=== PATIENT | female | born 1975 | race Caucasian/White ===

== ENCOUNTER → 2017-11-01 | Outpatient (REF) | payer OTHER ==
[2017-11-01 11:13] LABS: HEMATOCRIT 39.9 % (36.0-47.0); MEAN CORPUSCULAR HEMOGLOBIN 27.8 pg (27.0-33.0); MEAN CORPUSCULAR HGB CONC 32.6 g/dl (32.0-36.5); MEAN CORPUSCULAR VOLUME 85.3 fl (80.0-96.0); PLATELET COUNT, AUTOMATED 263 10^3/uL (150-450); RED BLOOD COUNT 4.68 10^6/uL (4.00-5.40); RED CELL DISTRIBUTION WIDTH 12.9 % (11.5-14.5); WHITE BLOOD COUNT 7.3 10^3/uL (4.0-10.0)
[2017-11-01 11:35] LABS: ALBUMIN 3.9 GM/DL (3.2-5.2); ALBUMIN/GLOBULIN RATIO 1.26 (1.00-1.93); ALKALINE PHOSPHATASE 98 U/L (45-117); ALT/SGPT 32 U/L (12-78); ANION GAP 8 MEQ/L (8-16); AST/SGOT 19 U/L (7-37); BILIRUBIN,TOTAL 0.5 MG/DL (0.2-1.0); BLOOD UREA NITROGEN 16 MG/DL (7-18); CALCIUM LEVEL 8.8 MG/DL (8.5-10.1); CARBON DIOXIDE LEVEL 26 MEQ/L (21-32); CHLORIDE LEVEL 108 MEQ/L (98-107); CHOLESTEROL LEVEL 149 MG/DL (<200); CREATININE FOR GFR 0.72 MG/DL (0.55-1.30); GLOMERULAR FILTRATION RATE > 60.0 (>58); GLUCOSE, FASTING 94 MG/DL (70-100); HDL CHOLESTEROL 39 MG/DL (>40); LDL CHOLESTEROL 90.6 MG/DL (<100); NON-HDL-C 110 MG/DL; SODIUM LEVEL 142 MEQ/L (136-145); TRIGLYCERIDES LEVEL 97 MG/DL (<150)
== END ==
LOC: M LABDRAW1 10:53
DX: E66.9 Obesity, unspecified (principal); R00.2 Palpitations; I10 Essential (primary) hypertension
CPT/HCPCS: 84443

== ENCOUNTER → 2018-05-10 | Outpatient (REF) | payer OTHER | LOC: M LAB REF 12:47 | DX: R19.7 Diarrhea, unspecified (principal) ==

== ENCOUNTER → 2018-05-10 | Outpatient (CLI) | payer OTHER ==
[2018-05-10 12:56] LABS: BASO % 0.4 % (0.0-1.0); EOS # 0.5 10^3/uL (0.0-0.50); EOS % 5.9 % (0.0-3.0); HEMATOCRIT 45.5 % (36.0-47.0); IMMATURE GRANULOCYTE % 0.4 % (0-3.0); LYMPH # 2.2 10^3/uL (1.5-4.5); LYMPH % 25.7 % (24.0-44.0); MEAN CORPUSCULAR HEMOGLOBIN 28.1 pg (27.0-33.0); MEAN CORPUSCULAR VOLUME 85.2 fl (80.0-96.0); MONO # 0.8 10^3/uL (0.0-0.8); NEUTROPHILS # 4.9 10^3/uL (1.8-7.7); NEUTROPHILS % 58.6 % (36.0-66.0); PLATELET COUNT, AUTOMATED 256 10^3/uL (150-450); RED BLOOD COUNT 5.34 10^6/uL (4.00-5.40); RED CELL DISTRIBUTION WIDTH 12.9 % (11.5-14.5); WHITE BLOOD COUNT 8.4 10^3/uL (4.0-10.0)
[2018-05-10 14:31] LABS: ALBUMIN 3.8 GM/DL (3.2-5.2); ALBUMIN/GLOBULIN RATIO 1.15 (1.00-1.93); ALKALINE PHOSPHATASE 110 U/L (45-117); ALT/SGPT 51 U/L (12-78); ANION GAP 7 MEQ/L (8-16); AST/SGOT 32 U/L (7-37); BILIRUBIN,TOTAL 0.4 MG/DL (0.2-1.0); BLOOD UREA NITROGEN 12 MG/DL (7-18); CALCIUM LEVEL 9.2 MG/DL (8.5-10.1); CARBON DIOXIDE LEVEL 24 MEQ/L (21-32); CHLORIDE LEVEL 108 MEQ/L (98-107); CREATININE FOR GFR 0.86 MG/DL (0.55-1.30); FREE T4 1.28 NG/DL (0.76-1.46); GLOMERULAR FILTRATION RATE > 60.0 (>58); GLUCOSE, FASTING 106 MG/DL (70-100); POTASSIUM SERUM 4.2 MEQ/L (3.5-5.1); SODIUM LEVEL 139 MEQ/L (136-145); TOTAL PROTEIN 7.1 GM/DL (6.4-8.2)
== END ==
LOC: M WUC 09:19
DX: R19.7 Diarrhea, unspecified (principal)
CPT/HCPCS: 84443

== ENCOUNTER 2021-03-24 07:31 | Emergency (ER) | payer OTHER ==
[~2021-03-24] VITALS: Ht 170.2 cm; Wt 117.6 kg
[2021-03-24] MEDS ORDERED: LISI-898 PO (07:41)
[2021-03-24] MEDS ORDERED: ACET325C5 PO (07:41)
[2021-03-24] MEDS ORDERED: OMEP20TA2 PO (07:41)
[2021-03-24] MEDS ORDERED: IBUP-1022 PO (07:41)
[2021-03-24] MEDS ORDERED: KETOROLAC TROMETHAMINE 10 MG TAB PO ONE (08:25)
[2021-03-24] MEDS ORDERED: METOCLOPRAMIDE 10 MG TAB PO ONE (08:25)
[2021-03-24] MEDS ORDERED: KETOROLAC 30 MG/ML 1ML VIAL IV ONE (08:25)
[2021-03-24 08:40] LABS: BASO # 0.1 10^3/uL (0.0-0.2); BASO % 0.5 % (0.0-1.0); EOS # 0.4 10^3/uL (0.0-0.5); EOS % 4.3 % (0.0-3.0); HEMATOCRIT 40.8 % (36.0-47.0); HEMOGLOBIN 13.2 g/dl (12.0-15.5); LYMPH # 2.8 10^3/uL (1.5-5.0); LYMPH % 27.7 % (24.0-44.0); MEAN CORPUSCULAR HEMOGLOBIN 27.1 pg (27.0-33.0); MEAN CORPUSCULAR HGB CONC 32.4 g/dl (32.0-36.5); MEAN CORPUSCULAR VOLUME 83.8 fl (80.0-96.0); MONO # 0.5 10^3/uL (0.0-0.8); MONO % 5.3 % (2.0-8.0); NEUTROPHILS # 6.1 10^3/uL (1.5-8.5); NEUTROPHILS % 61.8 % (36.0-66.0); PLATELET COUNT, AUTOMATED 306 10^3/uL (150-450); RED BLOOD COUNT 4.87 10^6/uL (4.00-5.40); WHITE BLOOD COUNT 9.9 10^3/uL (4.0-10.0)
[2021-03-24 09:05] LABS: ALBUMIN 3.5 GM/DL (3.2-5.2); ALT/SGPT 34 U/L (12-78); BILIRUBIN,TOTAL 0.3 MG/DL (0.2-1.0); BLOOD UREA NITROGEN 12 MG/DL (7-18); CALCIUM LEVEL 8.6 MG/DL (8.5-10.1); CARBON DIOXIDE LEVEL 25 MEQ/L (21-32); CHLORIDE LEVEL 110 MEQ/L (98-107); CREATININE FOR GFR 0.65 MG/DL (0.55-1.30); GLOMERULAR FILTRATION RATE > 60.0 (>58); GLUCOSE, FASTING 111 MG/DL (70-100); LIPASE 566 U/L (73-393); POTASSIUM SERUM 4.3 MEQ/L (3.5-5.1); SODIUM LEVEL 141 MEQ/L (136-145)
[2021-03-24 09:32] LABS: APPEARANCE, URINE CLEAR (CLEAR); BACTERIA, URINE AUTO NEGATIVE (NEGATIVE); BILIRUBIN, URINE AUTO NEGATIVE (NEGATIVE); BLOOD, URINE BLOOD NEGATIVE (NEGATIVE); COLOR, URINE YELLOW (YELLOW); GLUCOSE, URINE (UA) AUTO NEGATIVE (NEGATIVE); KETONE, URINE AUTO NEGATIVE (NEGATIVE); LEUKOCYTE ESTERASE, URINE AUTO TRACE (NEGATIVE); MUCUS, URINE SMALL (NEGATIVE); NITRITE, URINE AUTO NEGATIVE (NEGATIVE); PROTEIN, URINE AUTO 1+ mg/dL (NEGATIVE); RBC, URINE AUTO 4 /HPF (0-3); SPECIFIC GRAVITY URINE AUTO 1.028 (1.002-1.035); SQUAMOUS EPITHELIAL CELL UR AU 1 /HPF (0-6); UROBILINOGEN, URINE AUTO 0.2 mg/dL (0.0-2.0); WBC, URINE AUTO 1 /HPF (0-3)
--- NOTE | 2021-03-24 09:57 | REP ---
INDICATION: rt upper quadrant tenderness. COMPARISON: None. TECHNIQUE: Standard right upper quadrant sonography with color imaging as well. FINDINGS: The liver shows some diffuse hyperechogenicity a but is not enlarged. This suggests fatty infiltration. No focal hepatic mass, intrahepatic biliary dilatation nor adjacent ascites. Gallbladder shows wall thickness normal, up to 3 mm. There are echogenic foci within the gallbladder wall with shadowing and comet tail artifact suggesting adenomyomatosis. This is best seen on images 33-35. No pericholecystic fluid, stone or sludge. There is some mild tenderness on scanning. Common duct is 4 mm without a filling defect. Limited views of the pancreas with the tail obscured by gas shadowing and portions of the body and head seen. No gross abnormality in the limited visualized portion. Right kidney 9.4 x 5.8 x 5.1 cm without hydronephrosis. 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 Some tenderness on scanning. No gallstones. No wall thickening or pericholecystic fluid. Fatty infiltration liver without hepatic mass, intrahepatic biliary dilatation, adjacent ascites or generalized hepatomegaly. Common duct 4 mm and unremarkable. Limited visualization of the pancreas, those segments seen were unremarkable. Right kidney without hydronephrosis. <Electronically signed by Olaf Srivastava > 03/24/21 0911
[2021-03-24 11:18] VITALS: BP 157/91
== END 2021-03-24 11:19 | disposition home or self-care (01) ==
LOC: M ED 07:31
DX: K82.8 Other specified diseases of gallbladder (principal); K76.0 Fatty (change of) liver, not elsewhere classified; I10 Essential (primary) hypertension; K21.9 Gastro-esophageal reflux disease without esophagitis; F17.200 Nicotine dependence, unspecified, uncomplicated; Z88.2 Allergy status to sulfonamides
CPT/HCPCS: 76705; 80053; 81001; 83690; 85025; 96374; 99284; J1885

== ENCOUNTER → 2021-10-02 | Outpatient (CLI) | payer OTHER ==
[~2021-10-02] MED LIST: ACET325C5 PO; IBUP-1022 PO; LISI5TAB11 PO; OMEP20TA2 PO
== END ==
LOC: M WHC 07:25
PROVIDERS: ATTEND Surgery
DX: K82.8 Other specified diseases of gallbladder (principal); K76.0 Fatty (change of) liver, not elsewhere classified

== ENCOUNTER → 2021-11-19 | Outpatient (CLI) | payer OTHER ==
[2021-11-19 13:12] LABS: HEMOGLOBIN A1c 6.9 %
== END ==
LOC: M PLALAB 08:37
PROVIDERS: ATTEND Family Medicine
DX: R73.01 Impaired fasting glucose (principal)

== ENCOUNTER → 2022-11-22 | Outpatient (CLI) | payer OTHER ==
[2022-11-22 17:36] LABS: BASO # 0.1 10^3/uL (0.0-0.2); BASO % 0.6 % (0.0-1.0); EOS # 0.8 10^3/uL (0.0-0.5); EOS % 7.1 % (0.0-3.0); HEMATOCRIT 36.2 % (36.0-47.0); HEMOGLOBIN 11.6 g/dl (12.0-15.5); LYMPH % 37.7 % (24.0-44.0); MEAN CORPUSCULAR HEMOGLOBIN 26.6 pg (27.0-33.0); MONO # 0.7 10^3/uL (0.0-0.8); MONO % 6.7 % (2.0-8.0); NEUTROPHILS % 47.4 % (36.0-66.0); PLATELET COUNT, AUTOMATED 348 10^3/uL (150-450); RED BLOOD COUNT 4.36 10^6/uL (4.00-5.40); WHITE BLOOD COUNT 10.6 10^3/uL (4.0-10.0)
[2022-11-22 18:01] LABS: ALBUMIN 3.6 G/DL (3.2-5.2); ALKALINE PHOSPHATASE 118 U/L (46-116); ALT/SGPT 26 U/L (7.0-40); AST/SGOT 22 U/L (<34); BILIRUBIN,TOTAL 0.3 MG/DL (0.3-1.2); BLOOD UREA NITROGEN 13 MG/DL (9-23); CALCIUM LEVEL 8.7 MG/DL (8.5-10.1); CARBON DIOXIDE LEVEL 28 MMOL/L (20-31); CHLORIDE LEVEL 106 MMOL/L (98-107); CREATININE FOR GFR 0.68 MG/DL (0.55-1.30); GLOMERULAR FILTRATION RATE > 60.0 (>58); GLUCOSE, FASTING 110 MG/DL (60-100); POTASSIUM SERUM 4.3 MMOL/L (3.5-5.1); SODIUM LEVEL 140 MMOL/L (136-145); TOTAL PROTEIN 6.5 G/DL (5.7-8.2)
[2022-11-22 19:13] LABS: CLOSTRIDIUM DIFFICILE PCR NEGATIVE (NEGATIVE)
== END ==
LOC: M LAB 16:23
DX: K51.20 Ulcerative (chronic) proctitis without complications (principal)

== ENCOUNTER → 2023-01-06 | Outpatient (CLI) | payer OTHER ==
[2023-01-06 13:44] LABS: BASO # 0.1 10^3/uL (0.0-0.2); BASO % 0.4 % (0.0-1.0); EOS % 0.3 % (0.0-3.0); HEMATOCRIT 40.2 % (36.0-47.0); HEMOGLOBIN 12.5 g/dl (12.0-15.5); LYMPH # 3.5 10^3/uL (1.5-5.0); MEAN CORPUSCULAR HEMOGLOBIN 26.3 pg (27.0-33.0); MEAN CORPUSCULAR HGB CONC 31.1 g/dl (32.0-36.5); MEAN CORPUSCULAR VOLUME 84.5 fl (80.0-96.0); MONO # 0.6 10^3/uL (0.0-0.8); NEUTROPHILS # 9.7 10^3/uL (1.5-8.5); NEUTROPHILS % 69.9 % (36.0-66.0); PLATELET COUNT, AUTOMATED 415 10^3/uL (150-450); RED BLOOD COUNT 4.76 10^6/uL (4.00-5.40); WHITE BLOOD COUNT 13.9 10^3/uL (4.0-10.0)
[2023-01-06 14:19] LABS: ALBUMIN 3.8 G/DL (3.2-5.2); ALKALINE PHOSPHATASE 91 U/L (46-116); ALT/SGPT 22 U/L (7.0-40); AST/SGOT 14 U/L (<34); BILIRUBIN,TOTAL 0.5 MG/DL (0.3-1.2); BLOOD UREA NITROGEN 17 MG/DL (9-23); CALCIUM LEVEL 9.1 MG/DL (8.5-10.1); CARBON DIOXIDE LEVEL 24 MMOL/L (20-31); CHLORIDE LEVEL 104 MMOL/L (98-107); CREATININE FOR GFR 0.71 MG/DL (0.55-1.30); FERRITIN 11.2 NG/ML (7.3-270.7); GLOMERULAR FILTRATION RATE > 60.0 (>58); GLUCOSE, FASTING 161 MG/DL (60-100); IRON (FE) 36 UG/DL (50-170); PERCENT SATURATION 9.1 % (13.2-45.0); POTASSIUM SERUM 4.2 MMOL/L (3.5-5.1); SODIUM LEVEL 139 MMOL/L (136-145); TOTAL IRON BINDING CAPACITY 396 UG/DL (250-425); TOTAL PROTEIN 6.7 G/DL (5.7-8.2)
== END ==
LOC: M LAB 12:45
DX: K51.311 Ulcerative (chronic) rectosigmoiditis with rectal bleeding (principal)

== ENCOUNTER → 2023-01-12 | Outpatient (CLI) | payer OTHER | LOC: M PLALAB 14:07 | PROVIDERS: ATTEND Nurse Practitioner Family | DX: D50.9 Iron deficiency anemia, unspecified (principal) ==

== ENCOUNTER 2023-04-07 15:06 | Outpatient (CLI) | payer OTHER ==
[~2023-04-07] VITALS: Ht 170.2 cm; Wt 110.0 kg
[~2023-04-07 15:06] MED LIST changes: +ALBUTEROL SULFATE 2.5MG/0.5ML INH NEB SOLN INH PRN; +EPINEPHrine INJ 1 MG/ML 1ML AMP IM PRN; +diphenhydrAMINE 50MG/ML VIAL IV PRN; +methylPREDNISolone 125MG 2ML VIAL IV PRN
[2023-04-07 15:17] VITALS: BP 169/88; TEMP 97.6; O2SAT 97
[2023-04-07] MEDS ORDERED: NS 1,000 ML IV SCH (15:25)
[2023-04-07] MEDS ORDERED: VEDOLIZUMAB 300 MG in NS 250 ML IV ONE (15:30)
== END 2023-04-07 16:35 | disposition home or self-care (01) ==
LOC: M INFU 15:06
PROVIDERS: ATTEND Internal Medicine Gastroenterology
DX: K51.90 Ulcerative colitis, unspecified, without complications (principal); Z88.2 Allergy status to sulfonamides

== ENCOUNTER 2023-04-21 15:10 | Outpatient (CLI) | payer OTHER ==
[~2023-04-21] VITALS: Ht 170.2 cm; Wt 110.0 kg
[2023-04-21 15:22] VITALS: BP 137/90; TEMP 98; O2SAT 98
[2023-04-21] MEDS ORDERED: NS 1,000 ML IV SCH (15:25)
[2023-04-21] MEDS ORDERED: VEDOLIZUMAB 300 MG in NS 250 ML IV ONE (15:30)
[2023-04-21 16:19] VITALS: BP 126/80; O2SAT 97
== END 2023-04-21 16:30 ==
LOC: M INFU 15:10
PROVIDERS: ATTEND Internal Medicine Gastroenterology
DX: K51.90 Ulcerative colitis, unspecified, without complications (principal); Z88.2 Allergy status to sulfonamides

== ENCOUNTER 2023-05-19 15:15 | Outpatient (CLI) | payer OTHER ==
[~2023-05-19] VITALS: Ht 172.7 cm; Wt 123.0 kg
[~2023-05-19 15:15] MED LIST changes: +NS 1,000 ML IV SCH; +VEDOLIZUMAB 300 MG in NS 250 ML IV ONE
[2023-05-19 16:35] VITALS: BP 130/72; O2SAT 97
== END 2023-05-19 16:35 | disposition home or self-care (01) ==
LOC: M INFU 15:15
PROVIDERS: ATTEND Internal Medicine Gastroenterology
DX: K51.90 Ulcerative colitis, unspecified, without complications (principal); Z88.2 Allergy status to sulfonamides

== ENCOUNTER → 2023-07-06 | Outpatient (CLI) | payer OTHER ==
[~2023-07-06] MED LIST changes: -ALBUTEROL SULFATE 2.5MG/0.5ML INH NEB SOLN INH PRN; -EPINEPHrine INJ 1 MG/ML 1ML AMP IM PRN; -NS 1,000 ML IV SCH; -VEDOLIZUMAB 300 MG in NS 250 ML IV ONE; -diphenhydrAMINE 50MG/ML VIAL IV PRN; -methylPREDNISolone 125MG 2ML VIAL IV PRN
[2023-07-06 18:08] LABS: HEMATOCRIT 37.9 % (36.0-47.0); HEMOGLOBIN 11.9 g/dl (12.0-15.5); MEAN CORPUSCULAR HEMOGLOBIN 25.2 pg (27.0-33.0); MEAN CORPUSCULAR HGB CONC 31.4 g/dl (32.0-36.5); MEAN CORPUSCULAR VOLUME 80.1 fl (80.0-96.0); PLATELET COUNT, AUTOMATED 381 10^3/uL (150-450); RED BLOOD COUNT 4.73 10^6/uL (4.00-5.40)
[2023-07-06 18:20] LABS: ALBUMIN 3.6 G/DL (3.2-5.2); ALKALINE PHOSPHATASE 115 U/L (46-116); ALT/SGPT 35 U/L (7.0-40); AST/SGOT 19 U/L (<34); BILIRUBIN,TOTAL 0.3 MG/DL (0.3-1.2); BLOOD UREA NITROGEN 16 MG/DL (9-23); CALCIUM LEVEL 8.7 MG/DL (8.5-10.1); CARBON DIOXIDE LEVEL 26 MMOL/L (20-31); CHLORIDE LEVEL 106 MMOL/L (98-107); CREATININE FOR GFR 0.69 MG/DL (0.55-1.30); GLOMERULAR FILTRATION RATE > 60.0 (>58); GLUCOSE, FASTING 97 MG/DL (60-100); POTASSIUM SERUM 4.6 MMOL/L (3.5-5.1); SODIUM LEVEL 140 MMOL/L (136-145); TOTAL PROTEIN 6.8 G/DL (5.7-8.2)
== END ==
LOC: M PLALAB 15:15
PROVIDERS: ATTEND Nurse Practitioner Family
DX: K51.00 Ulcerative (chronic) pancolitis without complications (principal)

== ENCOUNTER → 2023-08-26 | Outpatient (CLI) | payer OTHER ==
[2023-08-26 11:10] LABS: BASO # 0.1 10^3/uL (0.0-0.2); BASO % 0.5 % (0.0-1.0); EOS % 9.5 % (0.0-3.0); HEMATOCRIT 37.4 % (36.0-47.0); HEMOGLOBIN 11.6 g/dl (12.0-15.5); LYMPH # 3.1 10^3/uL (1.5-5.0); LYMPH % 31.3 % (24.0-44.0); MEAN CORPUSCULAR HEMOGLOBIN 24.4 pg (27.0-33.0); MEAN CORPUSCULAR VOLUME 78.7 fl (80.0-96.0); MONO # 0.6 10^3/uL (0.0-0.8); MONO % 5.7 % (2.0-8.0); NEUTROPHILS # 5.3 10^3/uL (1.5-8.5); NEUTROPHILS % 52.7 % (36.0-66.0); PLATELET COUNT, AUTOMATED 376 10^3/uL (150-450); RED BLOOD COUNT 4.75 10^6/uL (4.00-5.40)
[2023-08-26 11:34] LABS: ALBUMIN 3.1 G/DL (3.2-5.2); ALKALINE PHOSPHATASE 133 U/L (46-116); ALT/SGPT 39 U/L (7.0-40); AST/SGOT 26 U/L (<34); BILIRUBIN,TOTAL 0.3 MG/DL (0.3-1.2); BLOOD UREA NITROGEN 13 MG/DL (9-23); CARBON DIOXIDE LEVEL 27 MMOL/L (20-31); CHLORIDE LEVEL 108 MMOL/L (98-107); CREATININE FOR GFR 0.58 MG/DL (0.55-1.30); FERRITIN 3.9 NG/ML (7.3-270.7); GLOMERULAR FILTRATION RATE > 60.0 (>58); GLUCOSE, FASTING 116 MG/DL (60-100); IRON (FE) 19 UG/DL (50-170); PERCENT SATURATION 4.8 % (13.2-45.0); POTASSIUM SERUM 3.8 MMOL/L (3.5-5.1); SODIUM LEVEL 143 MMOL/L (136-145); TOTAL IRON BINDING CAPACITY 394 UG/DL (250-425); TOTAL PROTEIN 5.9 G/DL (5.7-8.2)
[2023-08-26 11:35] LABS: TOTAL 25(OH) VITAMIN D 25.7 NG/ML (20.0-100.0); VITAMIN B12 LEVEL 325 PG/ML (211-911)
== END ==
LOC: M LAB 08:13
PROVIDERS: ATTEND Nurse Practitioner Family
DX: K51.00 Ulcerative (chronic) pancolitis without complications (principal); R11.0 Nausea; R14.0 Abdominal distension (gaseous)

== ENCOUNTER 2023-10-20 10:52 | Outpatient (CLI) | payer OTHER ==
[~2023-10-20] VITALS: Ht 170.2 cm; Wt 111.3 kg
[~2023-10-20 10:52] MED LIST changes: +ALBUTEROL SULFATE 2.5MG/0.5ML INH NEB SOLN INH PRN; +EPINEPHrine INJ 1 MG/ML 1ML AMP IM PRN; +NS 1,000 ML IV SCH; +diphenhydrAMINE 50MG/ML VIAL IV PRN; +methylPREDNISolone 125MG 2ML VIAL IV PRN
[2023-10-20 11:22] VITALS: BP 141/90; TEMP 98.7; O2SAT 100
[2023-10-20] MEDS: VEDOLIZUMAB 300 MG in NS 250 ML IV ONE (11:48)
[2023-10-20 12:24] VITALS: BP 161/97; O2SAT 98
== END 2023-10-20 12:26 ==
LOC: M INFU 10:52
PROVIDERS: ATTEND Internal Medicine Gastroenterology
DX: K51.90 Ulcerative colitis, unspecified, without complications (principal); Z88.2 Allergy status to sulfonamides

== ENCOUNTER 2023-11-17 15:27 | Outpatient (CLI) | payer OTHER ==
[~2023-11-17] VITALS: Ht 170.2 cm; Wt 102.0 kg
[2023-11-17 15:27] VITALS: BP 155/83; TEMP 98; O2SAT 98
[2023-11-17] MEDS: VEDOLIZUMAB 300 MG in NS 250 ML IV ONE (15:48)
[2023-11-17 16:40] VITALS: BP 141/80; O2SAT 99
== END 2023-11-17 16:40 ==
LOC: M INFU 15:27
PROVIDERS: ATTEND Internal Medicine Gastroenterology
DX: K51.90 Ulcerative colitis, unspecified, without complications (principal); Z88.2 Allergy status to sulfonamides

== ENCOUNTER 2023-12-27 15:35 | Outpatient (CLI) | payer OTHER ==
[~2023-12-27] VITALS: Ht 170.2 cm; Wt 122.5 kg
[~2023-12-27 15:35] MED LIST changes: +VEDOLIZUMAB 300 MG in NS 250 ML IV ONE
[2023-12-27 15:56] VITALS: BP 155/77; O2SAT 99
[2023-12-27] MEDS: VEDOLIZUMAB 300 MG in NS 250 ML IV ONE (16:43)
== END 2023-12-27 17:20 | disposition home or self-care (01) ==
LOC: M INFU 15:35
PROVIDERS: ATTEND Internal Medicine Gastroenterology
DX: K51.90 Ulcerative colitis, unspecified, without complications (principal); Z88.2 Allergy status to sulfonamides

== ENCOUNTER 2024-01-24 16:20 | Outpatient (CLI) | payer OTHER ==
[~2024-01-24] VITALS: Ht 170.2 cm; Wt 109.0 kg
[~2024-01-24 16:20] MED LIST changes: -VEDOLIZUMAB 300 MG in NS 250 ML IV ONE
[2024-01-24 16:30] VITALS: BP 139/77; O2SAT 98
[2024-01-24] MEDS ORDERED: NS 1,000 ML IV SCH (16:30)
[2024-01-24] MEDS: VEDOLIZUMAB 300 MG in NS 250 ML IV ONE (16:41)
[2024-01-24 17:15] VITALS: BP 134/84; O2SAT 99
== END 2024-01-24 17:15 | disposition home or self-care (01) ==
LOC: M INFU 16:20
PROVIDERS: ATTEND Internal Medicine Gastroenterology
DX: K51.90 Ulcerative colitis, unspecified, without complications (principal); Z88.2 Allergy status to sulfonamides

== ENCOUNTER 2024-02-21 16:00 | Outpatient (CLI) | payer OTHER ==
[2024-02-21 16:10] VITALS: BP 135/72; O2SAT 99
[2024-02-21] MEDS: VEDOLIZUMAB 300 MG in NS 250 ML IV ONE (16:25)
[2024-02-21 17:04] VITALS: BP 137/83; O2SAT 98
== END 2024-02-21 17:00 | disposition home or self-care (01) ==
LOC: M INFU 16:00
PROVIDERS: ATTEND Internal Medicine Gastroenterology
DX: K51.90 Ulcerative colitis, unspecified, without complications (principal); Z88.2 Allergy status to sulfonamides

== ENCOUNTER 2024-03-20 15:55 | Outpatient (CLI) | payer OTHER ==
[~2024-03-20] VITALS: Ht 170.2 cm; Wt 111.0 kg
[2024-03-20 15:45] VITALS: BP 157/98; O2SAT 99
[2024-03-20] MEDS ORDERED: ACETAMINOPHEN TAB 650MG DOSE (2X325MG) PO ONE (16:00)
[2024-03-20] MEDS: VEDOLIZUMAB 300 MG in NS 250 ML IV ONE (16:29)
== END 2024-03-20 17:10 ==
LOC: M INFU 15:55
PROVIDERS: ATTEND Internal Medicine Gastroenterology
DX: K51.90 Ulcerative colitis, unspecified, without complications (principal); Z88.2 Allergy status to sulfonamides

== ENCOUNTER 2024-04-17 15:44 | Outpatient (CLI) | payer OTHER ==
[~2024-04-17 15:44] MED LIST changes: -NS 1,000 ML IV SCH
[2024-04-17] MEDS ORDERED: NS 1,000 ML IV SCH (16:00)
[2024-04-17] MEDS ORDERED: ACETAMINOPHEN TAB 650MG DOSE (2X325MG) PO ONE (16:00)
[2024-04-17 16:02] VITALS: BP 151/89; O2SAT 97
[2024-04-17] MEDS: VEDOLIZUMAB 300 MG in NS 250 ML IV ONE (16:06)
== END 2024-04-17 16:00 ==
LOC: M INFU 15:44
PROVIDERS: ATTEND Internal Medicine Gastroenterology
DX: K51.90 Ulcerative colitis, unspecified, without complications (principal); Z88.2 Allergy status to sulfonamides

== ENCOUNTER 2024-05-15 16:00 | Outpatient (CLI) | payer OTHER ==
[~2024-05-15] VITALS: Ht 172.7 cm; Wt 110.5 kg
[~2024-05-15 16:00] MED LIST changes: +ACETAMINOPHEN TAB 650MG DOSE (2X325MG) PO ONE; +NS 1,000 ML IV SCH
[2024-05-15 16:05] VITALS: BP 158/96; O2SAT 98
[2024-05-15] MEDS: VEDOLIZUMAB 300 MG in NS 250 ML IV ONE (16:26)
== END 2024-05-15 17:05 ==
LOC: M INFU 16:00
PROVIDERS: ATTEND Internal Medicine Gastroenterology
DX: K51.919 Ulcerative colitis, unspecified with unspecified complications (principal)

== ENCOUNTER 2024-06-12 16:00 | Outpatient (CLI) | payer OTHER ==
[~2024-06-12] VITALS: Ht 172.7 cm; Wt 110.6 kg
[2024-06-12 15:47] VITALS: BP 127/73; O2SAT 99
[~2024-06-12 16:00] MED LIST changes: +ACETAMINOPHEN 650 MG PO ONE; -ACETAMINOPHEN TAB 650MG DOSE (2X325MG) PO ONE
[2024-06-12] MEDS: VEDOLIZUMAB 300 MG in LR 250 ML IV ONE (16:17)
[2024-06-12 16:57] VITALS: BP 142/80; O2SAT 99
== END 2024-06-12 16:57 ==
LOC: M INFU 16:00
PROVIDERS: ATTEND Internal Medicine Gastroenterology
DX: K51.90 Ulcerative colitis, unspecified, without complications (principal); Z88.2 Allergy status to sulfonamides

== ENCOUNTER → 2024-07-04 | Outpatient (REF) | payer OTHER ==
[~2024-07-04] MED LIST changes: -ACETAMINOPHEN 650 MG PO ONE; -ALBUTEROL SULFATE 2.5MG/0.5ML INH NEB SOLN INH PRN; -EPINEPHrine INJ 1 MG/ML 1ML AMP IM PRN; -NS 1,000 ML IV SCH; -diphenhydrAMINE 50MG/ML VIAL IV PRN; -methylPREDNISolone 125MG 2ML VIAL IV PRN
[2024-07-04 12:33] LABS: CLOSTRIDIUM DIFFICILE PCR NEGATIVE (NEGATIVE)
== END ==
LOC: M LAB REF 10:25
PROVIDERS: ATTEND Internal Medicine Gastroenterology
DX: K51.90 Ulcerative colitis, unspecified, without complications (principal); K90.0 Celiac disease; R74.8 Abnormal levels of other serum enzymes

== ENCOUNTER 2024-07-10 15:45 | Outpatient (CLI) | payer OTHER ==
[~2024-07-10] VITALS: Ht 162.6 cm; Wt 110.0 kg
[~2024-07-10 15:45] MED LIST changes: +ALBUTEROL SULFATE 2.5MG/0.5ML INH NEB SOLN INH PRN; +EPINEPHrine INJ 1 MG/ML 1ML AMP IM PRN; +NS 1,000 ML IV SCH; +diphenhydrAMINE 50MG/ML VIAL IV PRN; +methylPREDNISolone 125MG 2ML VIAL IV PRN
[2024-07-10 15:56] VITALS: BP 126/78; O2SAT 99
[2024-07-10] MEDS ORDERED: ACETAMINOPHEN 650 MG PO ONE (16:00)
[2024-07-10] MEDS: VEDOLIZUMAB 300 MG in NS 250 ML IV ONE (16:22)
[2024-07-10 16:59] VITALS: BP 145/87; O2SAT 99
== END 2024-07-10 17:00 ==
LOC: M INFU 15:45
PROVIDERS: ATTEND Internal Medicine Gastroenterology
DX: K51.90 Ulcerative colitis, unspecified, without complications (principal); Z88.2 Allergy status to sulfonamides

== ENCOUNTER 2024-08-07 16:00 | Outpatient (CLI) | payer OTHER ==
[~2024-08-07] VITALS: Ht 170.2 cm; Wt 109.0 kg
[2024-08-07 15:57] VITALS: BP 148/82; O2SAT 97
[~2024-08-07 16:00] MED LIST changes: +ACETAMINOPHEN 650 MG PO ONE; -NS 1,000 ML IV SCH; +OMEP-611 PO; -OMEP20TA2 PO
[2024-08-07] MEDS: VEDOLIZUMAB 300 MG in NS 250 ML IV ONE (16:27)
[2024-08-07 17:03] VITALS: BP 139/88; O2SAT 98
== END 2024-08-07 17:05 ==
LOC: M INFU 16:00
PROVIDERS: ATTEND Internal Medicine Gastroenterology
DX: K51.919 Ulcerative colitis, unspecified with unspecified complications (principal); Z88.2 Allergy status to sulfonamides

== ENCOUNTER 2024-08-08 14:12 | Outpatient (CLI) | payer OTHER ==
[~2024-08-08 14:12] MED LIST changes: -ACETAMINOPHEN 650 MG PO ONE; +FERRIC CARBOXYMALTOSE INJ 750 MG in NS 100 ML (>50kg) IV ONE; +NS 1,000 ML IV SCH
[2024-08-08 14:15] VITALS: BP 159/83; O2SAT 97
[2024-08-08] MEDS: FERRIC CARBOXYMALTOSE 750 MG (VIAL MATE) IN 100ML NS IV ONE (14:25)
[2024-08-08 15:09] VITALS: BP 132/84; O2SAT 98
== END 2024-08-08 15:10 ==
LOC: M INFU 14:12
PROVIDERS: ATTEND Family Medicine
DX: D50.9 Iron deficiency anemia, unspecified (principal); Z88.2 Allergy status to sulfonamides
CPT/HCPCS: 96365; J1439

== ENCOUNTER 2024-08-15 14:00 | Outpatient (CLI) | payer OTHER ==
[~2024-08-15] VITALS: Ht 170.2 cm; Wt 109.0 kg
[2024-08-15 14:00] VITALS: BP 120/74; O2SAT 98
[~2024-08-15 14:00] MED LIST changes: -FERRIC CARBOXYMALTOSE INJ 750 MG in NS 100 ML (>50kg) IV ONE; -NS 1,000 ML IV SCH
[2024-08-15] MEDS ORDERED: NS (Normal Saline) 0.9% 1,000 ML IV SCH (14:20)
[2024-08-15] MEDS: FERRIC CARBOXYMALTOSE 750 MG (VIAL MATE) IN 100ML NS IV ONE (14:24)
[2024-08-15 14:47] VITALS: BP 127/81; O2SAT 97
== END 2024-08-15 14:50 ==
LOC: M INFU 14:00
PROVIDERS: ATTEND Family Medicine
DX: D50.9 Iron deficiency anemia, unspecified (principal); Z88.2 Allergy status to sulfonamides
CPT/HCPCS: 96365; J1439

== ENCOUNTER 2024-09-04 16:07 | Outpatient (CLI) | payer OTHER ==
[~2024-09-04] VITALS: Ht 170.2 cm; Wt 109.0 kg
[2024-09-04] MEDS: ACETAMINOPHEN 650 MG PO ONE (15:30)
[~2024-09-04 16:07] MED LIST changes: +NS (Normal Saline) 0.9% 1,000 ML IV SCH
[2024-09-04 16:22] VITALS: O2SAT 98
[2024-09-04] MEDS: VEDOLIZUMAB 300 MG in NS 250 ML IV ONE (16:41)
[2024-09-04 17:23] VITALS: BP 166/93; O2SAT 99
== END 2024-09-04 17:24 ==
LOC: M INFU 16:07
PROVIDERS: ATTEND Internal Medicine Gastroenterology
DX: K51.90 Ulcerative colitis, unspecified, without complications (principal); Z88.2 Allergy status to sulfonamides

== ENCOUNTER 2024-10-02 11:30 | Outpatient (CLI) | payer OTHER ==
[2024-10-02 11:41] VITALS: BP 143/85; O2SAT 97
[2024-10-02] MEDS: VEDOLIZUMAB 300 MG in NS 250 ML IV ONE (11:53)
[2024-10-02] MEDS: ACETAMINOPHEN 650 MG PO ONE (11:53)
[2024-10-02 12:30] VITALS: BP 136/82; O2SAT 98
== END 2024-10-02 12:32 ==
LOC: M INFU 11:30
PROVIDERS: ATTEND Internal Medicine Gastroenterology
DX: K51.90 Ulcerative colitis, unspecified, without complications (principal); Z88.2 Allergy status to sulfonamides

== ENCOUNTER 2024-10-30 15:52 | Outpatient (CLI) | payer OTHER ==
[~2024-10-30] VITALS: Ht 170.2 cm; Wt 109.0 kg
[~2024-10-30 15:52] MED LIST changes: -NS (Normal Saline) 0.9% 1,000 ML IV SCH
[2024-10-30 15:55] VITALS: BP 142/88; O2SAT 98
[2024-10-30] MEDS ORDERED: ACETAMINOPHEN 650 MG PO ONE (16:00)
[2024-10-30] MEDS: VEDOLIZUMAB 300 MG in NS 250 ML IV ONE (16:50)
[2024-10-30 17:28] VITALS: BP 136/87; O2SAT 97
== END 2024-10-30 17:30 ==
LOC: M INFU 15:52
PROVIDERS: ATTEND Internal Medicine Gastroenterology
DX: K51.90 Ulcerative colitis, unspecified, without complications (principal); Z88.2 Allergy status to sulfonamides

== ENCOUNTER 2024-11-27 15:40 | Outpatient (CLI) | payer OTHER ==
[~2024-11-27] VITALS: Ht 170.2 cm; Wt 109.0 kg
[2024-11-27 15:40] VITALS: BP 140/83; O2SAT 98
[~2024-11-27 15:40] MED LIST changes: +ALBUTEROL SULFATE 2.5MG/0.5ML INH CONCENTRATE NEB SOLN INH PRN; -ALBUTEROL SULFATE 2.5MG/0.5ML INH NEB SOLN INH PRN; +NS (Normal Saline) 0.9% 1,000 ML IV SCH
[2024-11-27] MEDS ORDERED: ACETAMINOPHEN 650 MG PO ONE (16:00)
[2024-11-27] MEDS: VEDOLIZUMAB 300 MG in NS 250 ML IV ONE (16:37)
[2024-11-27 17:15] VITALS: BP 129/73; O2SAT 96
== END 2024-11-27 17:15 ==
LOC: M INFU 15:40
PROVIDERS: ATTEND Internal Medicine Gastroenterology
DX: K51.90 Ulcerative colitis, unspecified, without complications (principal); Z88.2 Allergy status to sulfonamides

== ENCOUNTER 2024-12-25 15:38 | Outpatient (CLI) | payer OTHER ==
[~2024-12-25] VITALS: Ht 170.2 cm; Wt 108.6 kg
[2024-12-25 15:45] VITALS: BP 131/77; O2SAT 98
[2024-12-25] MEDS: VEDOLIZUMAB 300 MG in NS 250 ML IV ONE (16:37)
[2024-12-25] MEDS: ACETAMINOPHEN 650MG PO PRIOR TO INFUSION PO ONE (16:40)
== END 2024-12-25 17:14 ==
LOC: M INFU 15:38
PROVIDERS: ATTEND Internal Medicine Gastroenterology
DX: K51.90 Ulcerative colitis, unspecified, without complications (principal); Z88.2 Allergy status to sulfonamides

== ENCOUNTER 2025-03-19 16:00 | Outpatient (CLI) | payer OTHER ==
[~2025-03-19] VITALS: Ht 170.2 cm; Wt 108.3 kg
[~2025-03-19 16:00] MED LIST changes: +ACETAMINOPHEN 650 MG PO ONE; +ALBUTEROL SULFATE 2.5 MG/0.5 ML INH CONCENTRATE NEB SOLN INH PRN; -ALBUTEROL SULFATE 2.5MG/0.5ML INH CONCENTRATE NEB SOLN INH PRN; +diphenhydrAMINE 50 MG/ML VIAL IV PRN; -diphenhydrAMINE 50MG/ML VIAL IV PRN; -methylPREDNISolone 125MG 2ML VIAL IV PRN
[2025-03-19 16:16] VITALS: BP 137/78; O2SAT 98
[2025-03-19] MEDS: VEDOLIZUMAB 300 MG in NS 250 ML IV ONE (16:29)
[2025-03-19 17:10] VITALS: BP 140/72; O2SAT 98
== END 2025-03-19 17:10 ==
LOC: M INFU 16:00
PROVIDERS: ATTEND Internal Medicine Gastroenterology
DX: K51.90 Ulcerative colitis, unspecified, without complications (principal); Z88.2 Allergy status to sulfonamides

== ENCOUNTER → 2025-04-16 | Outpatient (CLI) | payer OTHER ==
[~2025-04-16] VITALS: Ht 170.2 cm; Wt 109.1 kg
[~2025-04-16] MED LIST changes: -ACETAMINOPHEN 650 MG PO ONE
[2025-04-16] MEDS: ACETAMINOPHEN 650 MG PO ONE (16:00)
[2025-04-16] MEDS: VEDOLIZUMAB 300 MG in NS 250 ML IV ONE (16:47)
[2025-04-16 17:20] VITALS: BP 120/74; O2SAT 99
== END ==
LOC: M INFU 17:59
PROVIDERS: ATTEND Internal Medicine Gastroenterology
DX: K51.90 Ulcerative colitis, unspecified, without complications (principal); Z88.2 Allergy status to sulfonamides

== ENCOUNTER 2025-05-13 15:48 | Outpatient (CLI) | payer OTHER ==
[~2025-05-13] VITALS: Ht 170.2 cm; Wt 10.0 kg
[~2025-05-13 15:48] MED LIST changes: -IBUP-1022 PO; +IBUP600T42 PO
[2025-05-13 15:55] VITALS: BP 131/79; O2SAT 98
[2025-05-13] MEDS ORDERED: ACETAMINOPHEN 650 MG PO ONE (16:00)
[2025-05-13] MEDS: VEDOLIZUMAB 300 MG in NS 250 ML IV ONE (16:35)
[2025-05-13 17:14] VITALS: BP 129/79; O2SAT 98
== END 2025-05-13 17:15 ==
LOC: M INFU 15:48
PROVIDERS: ATTEND Internal Medicine Gastroenterology
DX: K51.90 Ulcerative colitis, unspecified, without complications (principal); Z88.2 Allergy status to sulfonamides

== ENCOUNTER 2025-06-10 15:45 | Outpatient (CLI) | payer OTHER ==
[~2025-06-10] VITALS: Ht 170.2 cm; Wt 109.0 kg
[2025-06-10] MEDS ORDERED: ACETAMINOPHEN 650 MG PO ONE (16:00)
[2025-06-10 16:02] VITALS: BP 122/68; O2SAT 95
[2025-06-10] MEDS: VEDOLIZUMAB 300 MG in NS 250 ML IV ONE (16:44)
[2025-06-10 17:20] VITALS: BP 128/65; O2SAT 97
== END 2025-06-10 17:20 | disposition home or self-care (01) ==
LOC: M INFU 15:45
PROVIDERS: ATTEND Internal Medicine Gastroenterology
DX: K51.90 Ulcerative colitis, unspecified, without complications (principal); Z88.2 Allergy status to sulfonamides

== ENCOUNTER 2025-07-08 15:46 | Outpatient (CLI) | payer OTHER ==
[~2025-07-08] VITALS: Ht 170.2 cm; Wt 109.1 kg
[2025-07-08 15:50] VITALS: BP 148/70; O2SAT 100
[2025-07-08] MEDS ORDERED: ACETAMINOPHEN 650 MG PO ONE (16:00)
[2025-07-08] MEDS: VEDOLIZUMAB 300 MG in NS 250 ML IV ONE (16:32)
[2025-07-08 17:10] VITALS: BP 118/73; O2SAT 97
== END 2025-07-08 17:16 | disposition home or self-care (01) ==
LOC: M INFU 15:46
PROVIDERS: ATTEND Internal Medicine Gastroenterology
DX: K51.90 Ulcerative colitis, unspecified, without complications (principal); Z88.2 Allergy status to sulfonamides

== ENCOUNTER 2025-08-05 15:41 | Outpatient (CLI) | payer OTHER ==
[~2025-08-05] VITALS: Ht 170.2 cm; Wt 111.3 kg
[2025-08-05 15:55] VITALS: BP 137/88; O2SAT 99
[2025-08-05] MEDS ORDERED: ACETAMINOPHEN 650 MG PO ONE (16:00)
[2025-08-05] MEDS: VEDOLIZUMAB 300 MG in NS 250 ML IV ONE (16:11)
[2025-08-05 16:50] VITALS: BP 126/80; O2SAT 97
== END 2025-08-05 16:50 | disposition home or self-care (01) ==
LOC: M INFU 15:41
PROVIDERS: ATTEND Internal Medicine Gastroenterology
DX: K51.90 Ulcerative colitis, unspecified, without complications (principal); Z88.2 Allergy status to sulfonamides